=== PATIENT | female | born 1985 | race Caucasian/White ===

== ENCOUNTER 2023-07-24 12:56 | Inpatient (IN) ==
[2023-07-24] MEDS ORDERED: Lidocaine 1% VIAL 10 MG/ML 30 ML VIAL INJ PRN (14:50)
[2023-07-24] MEDS: miSOPROStol 100 mcg TAB VAGINAL ONE (15:20)
[2023-07-24 18:00] LABS: Urine Benzodiazepine Screen None Detected (None Detect); Urine Cannabinoids Screen None Detected (None Detect); Urine Opiates Screen None Detected (None Detect)
[2023-07-24] MEDS: Lactated Ringers 1000 ml BAG 1,000 ML IV ONE (21:25)
[2023-07-24] MEDS: Dinoprostone 10 MG VAG.SUPP VAGINAL ONE (21:32)
[2023-07-24 21:48] LABS: ABS Lymphocytes 1.3 10^3/uL (1.0-4.8); ABS Monocytes 0.7 10^3/uL (0.0-0.9); ABS Neutrophils 6.4 10^3/uL (1.5-7.6); ABS Nucleated RBC 0.01 10^3/ul; Eosinophil % 0.1 %; Hematocrit 38.2 % (35-45); Hemoglobin 13.2 g/dL (11.5-14.3); Lymphocyte % 15.4 %; Mean Corpuscular Hemoglobin 30.9 pg (27-33); Mean Corpuscular Hgb Conc 34.5 g/dL (31-36); Mean Corpuscular Volume 89.6 fL (80-97); Mean Platelet Volume 10.6 fL (7.5-11.2); Nucleated Red Blood Cells % 0.1 %/100WBC (0.0-0.8); Platelet Count 153 10^3/uL (150-450); Red Blood Count 4.26 10^6/uL (3.63-4.92); Red Cell Distribution Width 13.9 % (12-17); White Blood Count 8.4 10^3/uL (3.8-11.8)
[2023-07-25] MEDS ORDERED: fentaNYL 100 mcg/2 ml 50 MCG/ML VIAL ONE (08:06)
[2023-07-25] MEDS: Penicillin G Potassium IV 5,000,000 UNITS in NS 0.9% 100 ml BAG 100 ML IVPB ONE (08:11)
[2023-07-25] MEDS: OBEPIDURAL (200 ML) 200 ML EPIDURAL ONE (08:28)
[2023-07-25] MEDS: Lidocaine 1.5% EPI 1:200,000 30 ML SDV ONE (08:29)
[2023-07-25] MEDS: Buffered Lidocaine 1% SYRIN 1 ml INTRADERM ONE (08:34)
[2023-07-25] MEDS: Phenylephrine 40 mcg/mL 10mL (400mcg) SYRINGE IV PUSH PRN (08:39)
[2023-07-25] MEDS ORDERED: Phenylephrine 40 mcg/mL 10mL (400mcg) SYRINGE IV PUSH PRN (09:05)
[2023-07-25] MEDS ORDERED: Sodium Citrate/Citric Acid LIQ 15 ML UDC PO PRN (09:05)
[2023-07-25] MEDS: OBEPIDURAL (200 ML) 200 ML EPIDURAL SCH (09:22)
[2023-07-25] MEDS: Lactated Ringers 1000 ml BAG 1,000 ML IV ONE (09:22)
[2023-07-25 09:57] LABS: Urine Appearance Clear; Urine Bilirubin Negative (Negative); Urine Blood Negative (Negative); Urine Color Yellow; Urine Glucose Negative (Negative); Urine Ketones Negative (Negative); Urine Nitrite Negative (Negative); Urine Protein Trace (Negative); Urine Specific Gravity 1.025 (1.002-1.030); Urine Urobilinogen Negative (Negative); Urine pH 6.5 (5.0-8.0)
[2023-07-25] MEDS: Methylergonovine 0.2 mg AMPULE 1 ml AMP ONE (11:57)
[2023-07-25] MEDS: Penicillin G Potassium IV 3,000,000 UNITS in NS 0.9% 100 ml BAG 100 ML IVPB SCH (12:37)
[2023-07-25] MEDS: Lactated Ringers 1000 ml BAG 1,000 ML IV SCH (13:12)
[2023-07-25] MEDS ORDERED: Oxytocin in LR 20,000 MILLI.UNIT/1,000 ML BAG IV SCH (14:20)
[2023-07-25] MEDS: Ondansetron 4 mg VIAL 2 MG/ML 2 ml VIAL IV PRN (15:17)
[2023-07-25] MEDS: Oxytocin in LR 20,000 MILLI.UNIT/1,000 ML BAG IV SCH (16:12)
[2023-07-25] MEDS ORDERED: Glycerin ADULT 2.4 gm SUPP PR PRN (18:18)
[2023-07-25] MEDS ORDERED: Lactated Ringers 1000 ml BAG 1,000 ML IV SCH (19:00)
[2023-07-25] MEDS: Dibucaine 1% OINT 28.35 GM TUBE PR PRN (20:23)
[2023-07-25] MEDS: Witch Hazel PAD JAR TOPICAL PRN (20:23)
[2023-07-26 07:17] LABS: ABS Lymphocytes 1.2 10^3/uL (1.0-4.8); ABS Monocytes 0.8 10^3/uL (0.0-0.9); ABS Neutrophils 8.5 10^3/uL (1.5-7.6); Eosinophil % 0.1 %; Hematocrit 35.4 % (35-45); Hemoglobin 12.2 g/dL (11.5-14.3); Lymphocyte % 11.7 %; Mean Corpuscular Hemoglobin 31.3 pg (27-33); Mean Corpuscular Hgb Conc 34.5 g/dL (31-36); Mean Corpuscular Volume 90.7 fL (80-97); Mean Platelet Volume 10.8 fL (7.5-11.2); Platelet Count 132 10^3/uL (150-450); Red Blood Count 3.91 10^6/uL (3.63-4.92); White Blood Count 10.6 10^3/uL (3.8-11.8)
[2023-07-27 09:36] VITALS: BP 98/66
[2023-07-27] MEDS: Enoxaparin 80 MG/0.8 ML SYR SUBCUT SCH (17:15)
== END 2023-07-27 17:48 | disposition home or self-care (01) | DRG 560 ==
LOC: MCHOBOUT 12:56 → MCHOB 14:47
PROVIDERS: ADMIT Midwife; ATTEND Registered Nurse